=== PATIENT | male | born 1985 | race Caucasian/White ===

== ENCOUNTER 2016-03-16 14:19 | Emergency (ER) | payer BC ==
[2016-03-16 14:37] VITALS: RESP 16; O2SAT 96
--- NOTE | 2016-03-16 16:07 | EDPHY ---
H & P Time Seen by Provider: 03/16/16 16:07 HPI/ROS: CHIEF COMPLAINT: Dizzy and nausea HISTORY OF PRESENT ILLNESS: This 31-year-old man has a history of type 2 diabetes anxiety and hypertension. He moved here in November from [place] and is not taking his diabetes medications since then. Was on Xigudo. Patient presents with about 3 days of intermittent lightheadedness and nausea and mild headache. Worse when he is standing. Not associated with actual syncope chest pain or shortness of breath. No vomiting. Symptoms moderate today and so presents for evaluation. He is concerned that his blood sugar may be high. REVIEW OF SYSTEMS: Eye: no change in vision, no double vision ENT: no sore throat Cardiac: no chest pain or syncope Pulmonary: no cough or SOB Abdomen: No diarrhea or abdominal pain. No vomiting. Musculoskeletal: no back pain or neck pain currently. Skin: no rash Neuro: Mild headache for 3 days, not sudden in onset or worst of life. He did fall snowboarding this past week on Friday but did not lose consciousness and was wearing a helmet. no weakness or numbness in extremities. No dizziness, ataxia, or vertigo. Constitutional: no fever : no urinary symptoms A comprehensive 10 point review of systems is otherwise negative aside from elements mentioned in the history of present illness. PAST MEDICAL HISTORY: Type 2 diabetes Social history: Nonsmoker, last alcohol 1 month ago, moved from [place] last November. General Appearance: Alert and conversant, cooperative. Eyes: No scleral icterus. ENT, Mouth: Normal mucous membranes. Normal tympanic membranes. No bruising over the mastoid. Respiratory: Normal respiratory effort, breath sounds equal, lungs are clear to auscultation. Cardiovascular: Regular rate and rhythm. Gastrointestinal: Abdomen is soft and non tender. Neurological: Alert and oriented x3. Normally conversant. Face symmetric, normal movement and sensation in all extremities. Normal [id number] and no pronator drift. Speech is fluent. Skin: Warm and dry, no rashes. Musculoskeletal: No peripheral edema and no joint swelling. Neck supple, no meningeal signs. Cervical spine nontender to palpation. Psychiatric: Not agitated. Emergency Department course/MDM: EKG, labs to include chemistry panel and glucose. Normal saline 2 L IV and Zofran 4 mg IV. Case management consultation for local primary care. 1702: Results discussed. Patient is asking me if this is related to hitting his head while snowboarding on Friday. He was wearing a helmet and currently does have a little bit of a headache. He never lost consciousness. No vomiting. I told him it is possible this is related to concussion but that can be addressed also in primary care follow-up. He does not have red flags to suggest he is high risk for intracranial bleed, subdural or epidural. Smoking Status: Never smoked Constitutional: Initial Vital Signs Temperature (C) 36.7 C 03/16/16 14:30 Heart Rate 69 03/16/16 14:30 Respiratory Rate 16 03/16/16 14:30 Blood Pressure 153/83 H 03/16/16 14:30 O2 Sat (%) 96 03/16/16 14:30 O2 Delivery Mode Room Air Allergies/Adverse Reactions: cefaclor [From Ceclor] Allergy (Verified 03/16/16 14:38) doxycycline Allergy (Verified 03/16/16 14:38) Home Medications: Medication Instructions Recorded Esomeprazole Mag Trihydrate 40 mg PO 03/16/16 [Nexium] clonazePAM [Klonopin (*)] 0.5 mg PO 03/16/16 Medical Decision Making - Diagnostics EKG Interpretation: 12-lead EKG interpreted by me; official reading is in trace master. My interpretation is sinus rhythm with nonspecific T-wave flattening. Differential Diagnosis: Differential considered including but not limited to viral syndrome, concussion , hyperglycemia or DKA, other metabolic. - Data Points Laboratory Results: Laboratory Results 03/16/16 16:00 03/16/16 16:00 03/16/16 16:00 WBC 9.75 H 10^3/uL (3.80-9.50) RBC 5.68 10^6/uL (4.40-6.38) Hgb 15.0 g/dL (13.7-17.5) Hct 45.1 % (40.0-51.0) MCV 79.4 L fL (81.5-99.8) MCH 26.4 L pg (27.9-34.1) MCHC 33.3 g/dL (32.4-36.7) RDW 14.2 % (11.5-15.2) Plt Count 237 10^3/uL (150-400) Sodium 141 mEq/L (134-144) Potassium 4.2 mEq/L (3.5-5.2) Chloride 107 mEq/L (97-110) Carbon Dioxide 24 mEq/l (22-31) Anion Gap 10 mEq/L (8-16) BUN 8 mg/dL (7-23) Creatinine 0.8 mg/dL (0.7-1.3) Estimated GFR > 60 Glucose 77 mg/dL (70-100) Calcium 9.7 mg/dL (8.5-10.4) Medications Given: Discontinued Medications Sodium Chloride (Ns) 500 mls @ 0 mls/hr IV EDNOW ONE PRN Reason: Wide Open Stop: 03/16/16 16:09 Last Admin: 03/16/16 16:11 Dose: 500 mls Sodium Chloride (Ns) 1,000 mls @ 0 mls/hr IV ONCE ONE PRN Reason: Wide Open Stop: 03/16/16 16:18 Last Admin: 03/16/16 17:11 Dose: 1,000 mls Ondansetron HCl (Zofran) 4 mg IVP EDNOW ONE Stop: 03/16/16 16:16 Last Admin: 03/16/16 16:19 Dose: 4 mg Departure - Departure Disposition: Home, Routine, Self-Care Clinical Impression: Lightheaded, possible concussion Condition: Good Instructions: Lightheadedness (ED), Concussion (ED) Additional Instructions: Our ER Case Management has been involved with trying to find a Primary Care Provider for you to follow-up with soon. They will call you on Friday with a scheduled date and time and more information. If you have questions or issues in the meantime, you can reach [facility] ER Case Management at [phone]. Referrals: NONE *PRIMARY CARE P,. [Primary Care Provider] - As per Instructions [facility] [Outside] - As per Instructions Stand Alone Forms: Work Excuse
[2016-03-16] MEDS ORDERED: NS 500 ML IV ONE (16:08)
[2016-03-16] MEDS ORDERED: ONDANSETRON 4 MG/2 ML VIAL IVP ONE (16:15)
[2016-03-16] MEDS ORDERED: NS 1,000 ML IV ONE (16:17)
[2016-03-16 16:25] LABS: HEMATOCRIT 45.1 % (40.0-51.0); MEAN CELL HEMOGLOBIN 26.4 pg (27.9-34.1); MEAN CELL HEMOGLOBIN CONCENTR. 33.3 g/dL (32.4-36.7); MEAN CELL VOLUME 79.4 fL (81.5-99.8); RED BLOOD CELL COUNT 5.68 10^6/uL (4.40-6.38); RED CELL DISTRIBUTION WIDTH 14.2 % (11.5-15.2)
[2016-03-16 16:41] LABS: ANION GAP 10 mEq/L (8-16); CALCIUM 9.7 mg/dL (8.5-10.4); CARBON DIOXIDE 24 mEq/l (22-31); CHLORIDE 107 mEq/L (97-110); CREATININE 0.8 mg/dL (0.7-1.3); GLOMERULAR FILTRATION RATE > 60; GLUCOSE 77 mg/dL (70-100); POTASSIUM 4.2 mEq/L (3.5-5.2); SODIUM 141 mEq/L (134-144)
--- NOTE | 2016-03-16 17:00 | CPEKG ---
Heart Rate: 61 RR Interval: 984 P-R Interval: 116 QRSD Interval: 96 QT Interval: 404 QTC Interval: 407 P [place]: 27 QRS [place]: 65 T Wave [place]: -10 EKG Severity - BORDERLINE ECG - EKG Impression: SINUS RHYTHM EKG Impression: BORDERLINE T ABNORMALITIES, INFERIOR LEADS Electronically Signed By: Tim Henry 16-Mar-2016 17:10:52
[2016-03-16 17:44] VITALS: BP 133/81; PULSE 71; TEMP 98.4
== END 2016-03-16 17:43 | disposition home or self-care (01) ==
DX: R42 Dizziness and giddiness (principal); E11.9 Type 2 diabetes mellitus without complications
CPT/HCPCS: 96374; J2405